=== PATIENT | female | born 1985 | race Caucasian/White ===

== ENCOUNTER 2017-05-16 08:43 | Emergency (ER) | payer MEDICAID, OTHER ==
[~2017-05-16] VITALS: Ht 157.5 cm; Wt 97.8 kg
[2017-05-16 08:49] VITALS: Ht 157.5 cm; Wt 97.8 kg
[2017-05-16] MEDS ORDERED: CEFTRIAXONE 1 GM/50 ML (PMX) 50 ML IVPB ONE (10:00)
--- NOTE | 2017-05-16 10:23 | RADRPT ---
PROCEDURE: US OB. CLINICAL INDICATION: Pelvic pain. TECHNIQUE: Multiple sonographic images of the uterus were obtained. The images were revi ewed on a PACS workstation. COMPARISON: No prior studies are available for comparison. FINDINGS: There is a single live intrauterine gestation. heart rate is 168 beats per minute. Measurements were made in order to determine age. The results are as follows: BPD = 6.75 cm. HC = 25.30 cm. AC = 23.07 cm. FL = 4.79 cm. Estimated weight is 1004 +/- 151 grams. LMP growth percentile is 21 %. Menstrual age by ultrasound dates is 27 weeks 0 days. The estimated date of delivery is 08/15/2017. Amniotic fluid index is 15.4 cm. Position is cephalic and placenta is anterior grade 1. There is no evidence for an abruption or plac enta previa. IMPRESSION: 1. Single live intrauterine gestation of 27 weeks 0 days menstrual age by ultrasound dates. 2. The estimated date of delivery is 08/15/2017. RPTAT: QQ .Brandon De La Paz MD, Date Time Electronically viewed and signed by .Bradnon De La Paz MD, on 05/16/2017 10:22 .R/
[2017-05-16] MEDS ORDERED: CEPH-443 PO (11:23)
[2017-05-16] MEDS ORDERED: TYL500 PO (11:23)
--- NOTE | 2017-05-16 11:35 | ERD ---
ER Documentation Chief Complaint Chief Complaint R HAND SWELLING AND R ELBOW IN PAIN HPI This is a 31-year-old female presents to the ER with right hand redness and swelling and right elbow redness and swelling. Patient states that she was admitted into the hospital on Wednesday and discharged on Wednesday secondary to her baby's heart rate being elevated. She is currently 27 weeks . She states that everything is normal now, however she developed this redness swelling and pain of her right hand on . That day she noted she had a red swollen bump on her right elbow as well. She denies any trauma to the area. She denies any numbness or tingling of her upper extremity. She denies any swelling of her arm. patient did have a fever on , which was tactile and she has not had a fever since then. She denies any pelvic pain, vaginal discharge, vaginal bleeding. A1. ROS 12 point review of systems was done, all negative except per HPI. Medications Home Meds Active Scripts Acetaminophen* (Tylenol*) 500 Mg Tab, 500 MG PO Q4H Y for MILD PAIN LEVEL 1-3 for 3 Days, TAB Prov:HUMERA,HUNTER C 05/16/17 Cephalexin* (Keflex*) 500 Mg Capsule, 500 MG PO BID for 7 Days, CAP Prov:HUMERA,HUNTER C 05/16/17 Allergies Allergies: Coded Allergies: No Known Allergy (Unverified , 11/03/13) PMhx/Soc History of Surgery: No Anesthesia Reaction: No Hx Neurological Disorder: No Hx Respiratory Disorders: No Hx Cardiac Disorders: No Hx Psychiatric Problems: No Hx Miscellaneous Medical Probl: Yes (neuroforamena (sp) of lumbar spine) Hx Alcohol Use: No Hx Substance Use: No Hx Tobacco Use: No Physical Exam Vitals Vital Signs Date Time Temp Pulse Resp B/P Pulse Ox O2 Delivery O2 Flow Rate FiO2 05/16/17 08:49 97.8 108 18 134/67 98 Physical Exam GENERAL: The patient is well developed and appropriate for usual state of health , in no apparent distress. HEENT: Atraumatic. CHEST: Clear to auscultation bilaterally. There are no rales, wheezes or rhonchi. HEART: Regular rate and rhythm. No murmurs, clicks, rubs or gallops. EXTREMITIES; at the IV insertion site, there is surrounding erythema, slight swelling and warmth to the touch. It is also tender to palpation. There is a small 1 cm x 2 cm area of redness and warmth to touch to the right elbow. There is no swelling of the forearm or upper arm. Neurovascularly intact. NEURO: Alert and oriented. SKIN: There is no apparent rash or petechia. The skin is warm and dry. Results 24 hrs Current Medications Medications (Trade) Dose Ordered Sig/Andrea Route PRN Reason Start Time Stop Time Status Last Admin Dose Admin Ceftriaxone Sodium (Rocephin) 50 ml @ 100 mls/hr ONCE ONCE IVPB 05/16/17 10:00 05/16/17 10:29 DC 05/16/17 10:14 [place] [id number] Radiology Main Line: [phone] DIAGNOSTIC IMAGING REPORT Patient: ESTHER TRAN : 1985 Age: 31 Sex: F MR #: [id number] DOS: 05/16/17 0000 Ordering MD: HUNTER GRUBBS PA-C Location: [facility] Room/Bed: PROCEDURE: US OB. CLINICAL INDICATION: Pelvic pain. TECHNIQUE: Multiple sonographic images of the uterus were obtained. The images were reviewed on a PACS workstation. COMPARISON: No prior studies are available for comparison. FINDINGS: There is a single live intrauterine gestation. heart rate is 168 beats per minute. Measurements were made in order to determine age. The results are as follows: BPD = 6.75 cm. HC = 25.30 cm. AC = 23.07 cm. FL = 4.79 cm. Estimated weight is 1004 +/- 151 grams. LMP growth percentile is 21 %. Menstrual age by ultrasound dates is 27 weeks 0 days. The estimated date of delivery is 08/15/2017. Amniotic fluid index is 15.4 cm. Position is cephalic and placenta is anterior grade 1. There is no evidence for an abruption or placenta previa. IMPRESSION: 1. Single live intrauterine gestation of 27 weeks 0 days menstrual age by ultrasound dates. 2. The estimated date of delivery is 08/15/2017. RPTAT: QQ .Brandon De La Paz MD, MD Date Time Electronically viewed and signed by .Brandon De La Paz MD, MD on 05/16/2017 10:22 .R/ CC: HUNTER GRUBBS Procedures/MDM This is a 31-year-old female that presents to the ER for redness, swelling and pain to the site where IV was attempted to be started. She also has a small area of redness and warmth to the touch to her elbow. This is likely superficial infection. Patient is afebrile and well-appearing. I discussed this case with my supervising physician Dr. Paul who suggested to give patient IV antibiotics. Patient is already on Keflex, she will be instructed to continue taking Keflex as she has only taken 1 dose. Suspicion for upper extremity blood clot is low, there is no swelling of the forearm or upper arm there is only swelling and localized redness to the area where the IV was attempted to be started and a small area on the elbow. He does not have any history of trauma, x-rays will not be ordered as suspicion for fractures or dislocations is low. I doubt that patient has osteomyelitis or necrotizing fasciitis as she is extremely well-appearing and her physical examination is benign other than superficial cellulitis. Was told to return to ER in 48 hours for recheck, or sooner if patient develops fevers, worsening redness, pain or swelling. She also is a follow-up with her [employer] as soon as possible. Shared my medical decision making with the patient she understands and agrees with plan. Departure Diagnosis: Primary Impression: Cellulitis Condition: Stable Patient Instructions: Cellulitis Additional Instructions: Return to this facility in 2 DAYS for a follow-up exam.Return sooner if your condition worsens. HUNTER GRUBBS May 16, 2017 11:35
[2017-05-16 11:39] VITALS: BP 125/62; PULSE 74; RESP 19; TEMP 97.9
== END 2017-05-16 11:48 | disposition home or self-care (01) ==
LOC: FTE 08:43
DX: O99.713 Diseases of the skin and subcutaneous tissue complicating pregnancy, third trimester (principal); L03.113 Cellulitis of right upper limb; Z3A.27 27 weeks gestation of pregnancy
CPT/HCPCS: 76811; 96374; J0696; Z7502

== ENCOUNTER 2017-05-18 11:03 | Emergency (ER) | payer SELFPAY ==
[~2017-05-18] VITALS: Ht 160 cm; Wt 89.0 kg
[~2017-05-18 11:03] MED LIST: CEPH-443 PO; TYL500 PO
[2017-05-18 11:08] VITALS: Ht 160 cm; Wt 89.0 kg
== END 2017-05-18 12:54 | disposition left against medical advice (07) ==
LOC: FTE 11:03
DX: Z53.21 Procedure and treatment not carried out due to patient leaving prior to being seen by health care provider (principal)